=== PATIENT | female | born 1995 | race Caucasian/White ===

== ENCOUNTER 2017-10-15 21:44 | Emergency (ER) | payer OTHER ==
[~2017-10-15] VITALS: Ht 152.4 cm; Wt 50.8 kg
[~2017-10-15 21:44] MED LIST: FA-80.8 M1; PRENATABS FA T1 EACH
[2017-10-16] MEDS ORDERED: PEPCID40 MG PO (08:17)
[2017-10-16] MEDS ORDERED: PHENERGAN25 MG PO (08:17)
== END 2017-10-16 08:27 | disposition home or self-care (01) ==
LOC: ER 21:44
DX: O26.891 Other specified pregnancy related conditions, first trimester (principal); Z34.01 Encounter for supervision of normal first pregnancy, first trimester

== ENCOUNTER 2017-12-17 20:40 | Outpatient (CLI) | payer OTHER ==
[~2017-12-17 20:40] MED LIST changes: +PEPCID40 MG PO; +PHENERGAN25 MG PO
[2017-12-18] MEDS ORDERED: KEFLEX500 MG PO (13:15)
== END 2017-12-18 16:13 | disposition home or self-care (01) ==
LOC: OBS/DEL 20:40
DX: O23.42 Unspecified infection of urinary tract in pregnancy, second trimester (principal); O26.892 Other specified pregnancy related conditions, second trimester; K59.09 Other constipation; Z34.02 Encounter for supervision of normal first pregnancy, second trimester

== ENCOUNTER 2018-01-31 21:33 | Inpatient (IN) | payer OTHER ==
[~2018-01-31] VITALS: Ht 152.4 cm; Wt 59.0 kg
[~2018-01-31 21:33] MED LIST changes: +KEFLEX500 MG PO
== END 2018-02-02 15:38 | disposition home or self-care (01) | DRG 780 ==
LOC: OBS/DEL 21:33 → LDR 02-01 11:21 → OBS/DEL 02-01 11:21 → LDR 02-02 15:38
PROC: BY4FZZZ Ultrasonography of Third Trimester, Single Fetus (ICD-10-PCS; principal; 2018-02-01)
PROC: 4A1HXCZ Monitoring of Products of Conception, Cardiac Rate, External Approach (ICD-10-PCS; 2018-02-01)
PROC: 3E0F7GC Introduction of Other Therapeutic Substance into Respiratory Tract, Via Natural or Artificial Opening (ICD-10-PCS; 2018-02-01)
PROC: 4A033R1 Measurement of Arterial Saturation, Peripheral, Percutaneous Approach (ICD-10-PCS; 2018-02-01)
DX: O47.03 False labor before 37 completed weeks of gestation, third trimester (principal); O98.313 Other infections with a predominantly sexual mode of transmission complicating pregnancy, third trimester; R06.09 Other forms of dyspnea; A60.09 Herpesviral infection of other urogenital tract

== ENCOUNTER 2022-07-17 22:41 | Outpatient (CLI) | payer OTHER ==
[~2022-07-17] VITALS: Ht 152.4 cm; Wt 72.6 kg
[2022-07-18] MEDS ORDERED: PRENATABS RX T1 EACH (14:51)
== END 2022-07-18 17:57 | disposition left against medical advice (07) ==
LOC: OBS/DEL 22:41 → LDR 07-18 12:27 → OBS/DEL 07-18 12:27 → LDR 07-18 17:57
PROVIDERS: ATTEND Obstetrics & Gynecology
DX: O23.02 Infections of kidney in pregnancy, second trimester (principal); Z3A.23 23 weeks gestation of pregnancy